=== PATIENT | female | born 1930 | race Caucasian/White ===

== ENCOUNTER → 2017-01-14 | Outpatient (CLI) | payer OTHER, MEDICARE ==
[~2017-01-14] MED LIST: ACETAMINOPHEN500 MG PO; ALLOPURINOL100 MG PO; AQUAPHOR OINTM105 GM TP; ARTANE2 MG PO; ASPIRIN EC325 MG PO; BACTRIM,SEPT1 TABLET PO; BAYER CHEWABLE81 MG PO; BENADRYL25 MG PO; BENTYL10 MG PO; CEFEPIME HCL1 GM IV; CRANBERRY425 MG PO; CRESTOR10 MG PO; CRESTOR20 MG PO; CRESTOR5 MG PO; DULCOLAX10 MG PR; Dulcolax PR; ECOTRIN325 MG PO; ECPIRIN325 M1 PO; EFFEXOR37.5 MG PO; EFFEXOR75 MG PO; Ecotrin PO; Effexor XR PO; FLEET ENEMA-AD118 ML PR; FLEET MINERAL133 ML PR; GLUCOPHAGE1000 M1 PO; GLUCOPHAGE1000 MG PO; HEALTHYLAX17 GM PO; HIPREX1 GM PO; IMDUR30 MG; IMDUR30 MG PO; INDERAL40 MG; INDERAL40 MG PO; INDERAL80 MG PO; INNOPRAN XL80 MG PO; ISMO20 MG PO; ISOSORBIDE MONO10 MG PO; Imdur PO; LANTUS 3 M100 UNITS1 SC; LEVAQUIN500 MG PO; LIDEX 0.05% CRE60 GM TP; LITE COAT ASPI325 M1 PO; Levaquin PO; MACROBID100 MG PO; METFORMIN HCL1000 MG PO; METFORMIN HCL500 MG PO; METOPROLOL TART50 MG PO; MIRALAX17 GM PO; MIRALAX255 GM PO; MONOPRIL10 MG PO; MONOPRIL20 MG PO; Macrodantin PO; NIZORAL SHAMPO120 ML TP; NON-ASPIRIN EX500 MG PO; NOVOLOG PE100 UNITS/ SC; PAIN & FEVER325 MG PO; PHENERGAN12.5 M1 PO; PHILLIPS'400 MG/5 M PO; POLYETHYLENE G255 GM PO; PREMARIN VAGI42.5 GM VG; PRILOSEC40 MG PO; PRINIVIL20 MG PO; PROMETHAZINE HC25 M1 PO; QUETIAPINE FUMA50 MG PO; ROPINIROLE HC0.25 MG PO; ROPINIROLE HCL0.5 MG PO; SENNA8.6 MG; SENNA8.6 MG PO; Senokot,Sennagen PO; TRAMADOL HCL50 MG PO; TYLENOL EXTRA500 MG PO; TYLENOL REGULA325 MG PO; Tylenol Extra Streng PO; VENLAFAXINE H37.5 MG PO; ZYLOPRIM100 MG PO; ZYVOX600 MG; Zyloprim PO
== END ==
LOC: RAD 08:00
DX: R13.13 Dysphagia, pharyngeal phase (principal); J18.9 Pneumonia, unspecified organism; J44.9 Chronic obstructive pulmonary disease, unspecified; Z86.73 Personal history of transient ischemic attack (TIA), and cerebral infarction without residual deficits
CPT/HCPCS: 74230; 92611 GN; G8996 GN CI; G8997 GN CI; G8998 GN CI